=== PATIENT | female | born 1975 | race Two or more races ===

== ENCOUNTER 2020-07-02 23:52 | Inpatient (IN) | payer OTHER ==
[~2020-07-02] VITALS: Ht 162.6 cm; Wt 95.4 kg
[2020-07-03] VITALS (10 sets, daily range): BP systolic 106–121; BP diastolic 58–73
[2020-07-03] MEDS ORDERED: PANTOPRAZOLE SODIUM 40 MG/VIAL IVP ONE
[2020-07-03] MEDS ORDERED: MELA5TAB3 PO (00:17)
[2020-07-03] MEDS ORDERED: QUET100T PO (00:17)
[2020-07-03] MEDS ORDERED: TRAZ-257 PO (00:17)
[2020-07-03 00:23] LABS: BASOPHILS % (AUTO) 0.9 % (0.0-2.0); EOSINOPHILS % (AUTO) 1.8 % (1.0-6.0); HEMATOCRIT 25.3 % (36-46); LYMPHOCYTES # (AUTO) 2.2 K/uL (1.0-4.8); LYMPHOCYTES % (AUTO) 24.6 % (22.0-44.0); MEAN CORPUSCULAR HEMOGLOBIN 31.6 pg (26.0-34.0); MEAN CORPUSCULAR HGB CONC 35.5 G/dL (31.0-37.0); MEAN CORPUSCULAR VOLUME 89 fL (80-100); MONOCYTES # (AUTO) 0.9 K/uL (0.1-1.0); NEUTROPHILS # (AUTO) 5.7 K/uL (1.8-7.7); NEUTROPHILS % (AUTO) 62.7 % (40.0-70.0); PLATELET COUNT (AUTO) 241 K/uL (150-450); RED BLOOD CELL COUNT(AUTO) 2.85 MIL/uL (4.00-5.20); RED CELL DISTRIBUTION WIDTH 13.1 % (11.5-14.5)
[2020-07-03 00:30] LABS: ANION GAP 7 mmol/L (8-16); CALCIUM, TOTAL 7.6 mg/dL (8.8-10.5); CARBON DIOXIDE 27 mmol/L (22-29); CHLORIDE 107 mmol/L (98-107); GLOMERULAR FILTR. RATE CALC > 60 mL/min (>60); GLUCOSE,RANDOM 127 mg/dL (70-110); POTASSIUM 3.1 mmol/L (3.5-5.1); SODIUM SERUM 141 mmol/L (136-145); UREA NITROGEN, BLOOD 27 mg/dL (7-18)
[2020-07-03 00:34] LABS: INR 1.1 (0.9-1.1); PROTHROMBIN TIME 11.3 SEC (9.4-11.6)
[2020-07-03] MEDS ORDERED: SODIUM CHLORIDE 0.9% 1,000 ML ONE (00:44)
[2020-07-03] MEDS: POTASSIUM CHL 10 MEQ/WATER 50 ML IV SCH ×3 (00:46→03:29)
[2020-07-03 00:53] LABS: ALANINE AMINOTRANSFERASE 25 U/L (12-78); ALKALINE PHOSPHATASE 81 U/L (46-116); ASPARTATE AMINOTRANSFERASE 13 U/L (15-37); BILIRUBIN,TOTAL 0.2 mg/dL (0.1-1.0); HCG,QUANTITATIVE < 1 mIU/mL (0-6); LIPASE 74 U/L (73-393); TOTAL PROTEIN, SERUM 5.8 g/dL (6.4-8.2)
[2020-07-03] MEDS ORDERED: PANTOPRAZOLE SODIUM 80 MG in SODIUM CHLORIDE 0.9% 100 ML IV SCH (01:30)
[2020-07-03] MEDS ORDERED: SODIUM CHLORIDE 0.9% 3,000 ML IV SCH (02:30)
[2020-07-03] MEDS ORDERED: RINGERS SOLUTION,LACTATED 1,000 ML IV ONE (02:30)
[2020-07-03] MEDS ORDERED: OCTREOTIDE ACETATE 500 MCG in DEXTROSE 5%-WATER 97.5 ML IV SCH (03:00)
[2020-07-03] MEDS ORDERED: ONDANSETRON HCL 4 MG/2 ML VIAL IVP PRN (05:30)
[2020-07-03] MEDS: PANTOPRAZOLE SODIUM 80 MG in SODIUM CHLORIDE 0.9% 100 ML IV SCH ×2 (10:10→19:59)
[2020-07-03] MEDS ORDERED: PROPOFOL 1% 20 ML VIAL IVP ONE (12:00)
[2020-07-03] MEDS ORDERED: ACETAMINOPHEN 325 MG TABLET PO PRN (12:45)
[2020-07-04] VITALS: BP 113/63
[2020-07-04 04:00] VITALS: BP 104/53
[2020-07-04] MEDS: PANTOPRAZOLE SODIUM 80 MG in SODIUM CHLORIDE 0.9% 100 ML IV SCH (05:56)
[2020-07-04 06:25] LABS: HEMOGLOBIN 9.6 g/dL (12.0-16.0)
[2020-07-04 07:00] LABS: GLUCOSE,POINT OF CARE 124 MG/DL (70-110)
[2020-07-04] MEDS ORDERED: PANT-31 PO (07:46)
[2020-07-04] MEDS ORDERED: FERR-89 PO (07:48)
[2020-07-04 08:00] VITALS: BP 117/65
== END 2020-07-04 10:03 | disposition home or self-care (01) | DRG 377 ==
LOC: EMS 23:52 → ICU 07-03 02:24
PROVIDERS: ADMIT Internal Medicine; ATTEND Internal Medicine
PROC: 0DB68ZX Excision of Stomach, Via Natural or Artificial Opening Endoscopic, Diagnostic (ICD-10-PCS; principal; 2020-07-03 16:30)
DX: K29.71 Gastritis, unspecified, with bleeding (principal); R57.1 Hypovolemic shock; D62 Acute posthemorrhagic anemia; I95.9 Hypotension, unspecified; E87.6 Hypokalemia; K92.0 Hematemesis; E66.9 Obesity, unspecified; G89.29 Other chronic pain; M54.9 Dorsalgia, unspecified; F41.9 Anxiety disorder, unspecified; F32.9 Major depressive disorder, single episode, unspecified; I10 Essential (primary) hypertension; Z20.828 Contact with and (suspected) exposure to other viral communicable diseases; Z88.1 Allergy status to other antibiotic agents
CPT/HCPCS: 84132; 85014; 85018; 86850; 86900; 86901; 86923; 87081; 88305; 88312; 88313; 93005; 99291; C9113; G0378; J2354; J2405; J2704; J3480; J7030; J7050; J7060; J7120; 36415-L1; 36415-TC; 71045-TC; 87635